=== PATIENT | female | born 1940 | race Caucasian/White ===

== ENCOUNTER 2016-09-01 11:51 | Emergency (ER) | payer OTHER ==
[~2016-09-01] VITALS: Ht 152.4 cm; Wt 53.6 kg
[~2016-09-01 11:51] MED LIST: ACCUPRIL40 MG PO; ALPRAZOLAM0.5 MG PO; AMLODIPINE BESYL5 MG PO; APRESOLINE50 MG PO; ASPIR-LOW81 MG PO; ATARAX,VISTARIL50 MG PO; BENADRYL25 MG PO; BENTYL10 MG PO; CALCIUM 600 +1 EAC3 PO; DALMANE30 MG PO; DEPAKOTE; DEPAKOTE ER (E250 MG PO; DILAUDID4 MG PO; DULCOLAX10 MG PR; DURAGESIC100 MCG TD; DURAGESIC75 MCG PO; DURAGESIC75 MCG TD; ERGOCALCIF50000 UNIT PO; Ecotrin PO; FENTANYL PATCH; FENTANYL1 EAC3 TD; FERROUS SULFAT325 MG PO; FLONASE16 G1 BOTH NARES; GABAPENTIN300 MG PO; HYDROCODON-ACE1 EAC7 PO; HYDROXYZINE PAM50 MG PO; IRON325 MG PO; KENALOG,ARISTOC15 GM TP; KLOR-CON 1010 ME1 PO; KLOR-CON M1010 MEQ PO; LISINOPRIL; LO-DOSE ASPIRIN81 M1 PO; LORAZEPAM; LOSARTAN POTAS100 MG PO; LOSARTAN POTASS50 MG PO; LOSARTAN-HCTZ1 EAC2 PO; METHADONE10 MG PO; MULTI VITAMIN1 EACH PO; MULTIVITAMIN1 EAC2 PO; Methadone PO; NORVASC5 MG PO; OMEPRAZOLE20 M2 PO; OMEPRAZOLE20 MG PO; OXYCODONE; OXYCODONE HCL5 MG PO; OXYCONTIN10 MG PO; PERCOCET 5/31 TABLET PO; POTASSIUM CHLO10 ME3 PO; PREDNISONE10 MG PO; PREDNISONE20 MG PO; PRILOSEC; PRILOSEC40 MG PO; PROMETHAZINE HC25 M1 PO; PriLOSEC PO; QUINAPRIL HCL40 MG PO; QUINAPRIL PO; REQUIP0.5 MG PO; RESTORIL30 MG PO; SENNA LAX8.6 MG PO; SENOKOT S,PE1 TABLET PO; TEMAZEPAM30 MG PO; TRAZODONE HCL50 MG PO; TRIAMCINOLONE A15 GM TP; TYLENOL EXTRA500 MG PO; TYLENOL REGULA325 MG PO; VITAMIN A8000 UNIT PO; VITAMIN B12 100MCG PO; VITAMIN B12-FO1 EACH PO; VITAMIN E100 UNIT PO; Vicodin,Norco 5/325 PO; XANAX; XANAX0.5 MG PO; XANAX1 MG PO; ZOFRAN4 MG PO; ZOFRAN8 MG PO; ZOLPIDEM TARTRAT5 MG PO; [UNRECOGNIZED DRUG - OTHER] PO
[2016-09-01 13:51] LABS: EOSINOPHIL (%) 0.8 % (0-5); EOSINOPHIL COUNT 0.1 K/uL (0-0.3); HEMATOCRIT 31.9 % (36.0-46.0); IMMATURE GRANULOCYTE (%) 0.2 % (0.0-0.7); IMMATURE GRANULOCYTE COUNT 0.2 K/uL; LYMPHOCYTE COUNT 0.8 K/uL (1.0-2.8); MCH 27.4 PG (29.0-34.0); MCHC 33.2 G/DL (30.0-36.0); MCV 82.4 FL (83-99); MEAN PLAT.VOLUME 8.4 uM^3 (9.5-12.4); MONOCYTE (%) 9.1 % (3-12); MONOCYTE COUNT 0.8 K/uL (0-0.8); NEUTROPHIL (%) 80.2 % (45-76); NEUTROPHIL COUNT 7.1 K/uL (1.8-6.4); PLATELET COUNT 245 K/uL (156-360); RBC DIS.WIDTH-CV 13.8 % (11.8-14.6); RBC DIS.WIDTH-SD 40.5 % (39-53); RED BLOOD COUNT 3.87 M/uL (3.80-5.20); WHITE BLOOD COUNT 8.9 K/uL (4.1-10.2)
[2016-09-01 13:59] LABS: CHLORIDE 98 mEq/L (99-109); POTASSIUM 4.4 mEq/L (3.7-5.4); SODIUM 133 mEq/L (136-147)
[2016-09-01 14:00] LABS: GLUCOSE 103 mg/dL (70-99)
[2016-09-01 14:02] LABS: ANION GAP 13 MEQ/L (2-14)
[2016-09-01 14:04] LABS: GFR ESTIMATE (CALCULATED) > 59 mL/min/
[2016-09-01 14:05] LABS: UREA NITROGEN (BUN) 18 mg/dL (9-23)
[2016-09-01] MEDS ORDERED: PERCOCET 5/31 TABLET PO (14:55)
[2016-09-01] MEDS ORDERED: DOXYCYCLINE HY100 M3 PO (14:55)
[2016-09-01 15:30] VITALS: BP 124/94
== END 2016-09-01 15:49 | disposition home or self-care (01) ==
LOC: EME 11:51
PROVIDERS: Emergency Medicine
PROC: 0H9HXZZ Drainage of Right Upper Leg Skin, External Approach (ICD-10-PCS; principal; 2016-09-01)
DX: L02.415 Cutaneous abscess of right lower limb (principal); L03.115 Cellulitis of right lower limb; F17.200 Nicotine dependence, unspecified, uncomplicated; Z71.6 Tobacco abuse counseling; Z85.3 Personal history of malignant neoplasm of breast; I10 Essential (primary) hypertension; G89.29 Other chronic pain
CPT/HCPCS: 80048; 83605; 85025; 87040; 99281; 99285; J1170; J2405

== ENCOUNTER 2016-09-03 11:53 | Emergency (ER) | payer OTHER ==
[~2016-09-03] VITALS: Ht 152.4 cm; Wt 53.5 kg
[~2016-09-03 11:53] MED LIST changes: +DOXYCYCLINE HY100 M3 PO
[2016-09-03] MEDS ORDERED: ATARAX,VISTARIL25 MG PO (13:54)
[2016-09-03 14:17] VITALS: BP 139/81
== END 2016-09-03 14:18 | disposition home or self-care (01) ==
LOC: EME 11:53
DX: Z48.01 Encounter for change or removal of surgical wound dressing (principal)
CPT/HCPCS: 99281; 99284

== ENCOUNTER 2016-09-19 19:08 | Emergency (ER) | payer OTHER ==
[~2016-09-19] VITALS: Ht 162.6 cm; Wt 55.3 kg
[~2016-09-19 19:08] MED LIST changes: +ATARAX,VISTARIL25 MG PO
[2016-09-19 20:22] LABS: POINT-OF-CARE METER ID UU14100415
[2016-09-19 21:45] LABS: BASE EXCESS -1.3 mEq/L (-3 to +3); BICARBONATE 23.7 mEq/L (22-26); CARBOXY HGB 2.6 % (0-5); COMMENTS - BLOOD GASES C+A+; DEVICE ROOM AIR; METHEMOGLOBIN 1.1 % (0-1.5); PCO2 40 mm Hg (35-45); PO2 77 mm Hg (80-100); SITE LB; pH 7.38 (7.35-7.45)
[2016-09-19 22:02] LABS: HEMATOCRIT 29.8 % (36.0-46.0); MCH 26.6 PG (29.0-34.0); MCHC 32.9 G/DL (30.0-36.0); RBC DIS.WIDTH-CV 14.8 % (11.8-14.6); RBC DIS.WIDTH-SD 42.4 % (39-53); RED BLOOD COUNT 3.68 M/uL (3.80-5.20); WHITE BLOOD COUNT 7.9 K/uL (4.1-10.2)
[2016-09-19 22:17] LABS: CHLORIDE 105 mEq/L (99-109); POTASSIUM 4.1 mEq/L (3.7-5.4); SODIUM 135 mEq/L (136-147)
[2016-09-19 22:19] LABS: GLUCOSE 112 mg/dL (70-99)
[2016-09-19 22:20] LABS: ANION GAP 8 MEQ/L (2-14)
[2016-09-19 22:23] LABS: GFR ESTIMATE (CALCULATED) 58 mL/min/
[2016-09-19 22:24] LABS: UREA NITROGEN (BUN) 23 mg/dL (9-23)
[2016-09-19] MEDS ORDERED: NARCAN4 MG NS (22:31)
[2016-09-19 22:33] LABS: MEAN PLAT.VOLUME 9.5 uM^3 (9.5-12.4); PLATELET COUNT 152 K/uL (156-360)
[2016-09-19 22:49] VITALS: BP 126/56
== END 2016-09-19 22:49 | disposition home or self-care (01) ==
LOC: EME → EDBD 19:08 → EME 22:49
PROVIDERS: Emergency Medicine
DX: T40.4X1A Poisoning by other synthetic narcotics, accidental (unintentional), initial encounter (principal); F17.210 Nicotine dependence, cigarettes, uncomplicated
CPT/HCPCS: 36600; 80048; 81003; 82803; 82948; 83605; 85025; 85027; 93005; 99281; 99285; J2310

== ENCOUNTER → 2016-11-09 | Outpatient (CLI) | payer OTHER ==
[~2016-11-09] MED LIST changes: +BACTRIM,SEPT1 TABLET PO; +NARCAN4 MG NS
== END | disposition home or self-care (01) ==
LOC: AMB 14:30
DX: T82.7XXA Infection and inflammatory reaction due to other cardiac and vascular devices, implants and grafts, initial encounter (principal); Y83.1 Surgical operation with implant of artificial internal device as the cause of abnormal reaction of the patient, or of later complication, without mention of misadventure at the time of the procedure; C50.919 Malignant neoplasm of unspecified site of unspecified female breast; Z92.21 Personal history of antineoplastic chemotherapy; W55.03XA Scratched by cat, initial encounter
CPT/HCPCS: 87070; 87106

== ENCOUNTER 2016-11-19 13:44 | Day surgery (SDC) | payer OTHER ==
[~2016-11-19] VITALS: Ht 152.4 cm; Wt 52.2 kg
[~2016-11-19 13:44] MED LIST changes: +LEXAPRO10 MG PO; +LO-DOSE ASPIRIN81 M2 PO
[2016-11-19 14:33] VITALS: BP 90/50
[2016-11-19 19:50] VITALS: BP 108/54
[2016-11-19 20:50] VITALS: BP 90/52
== END 2016-11-19 21:10 | disposition home or self-care (01) ==
LOC: SDC
PROC: 0HPU0NZ Removal of Tissue Expander from Left Breast, Open Approach (ICD-10-PCS; principal; 2016-11-19)
PROC: 0HRV0JZ Replacement of Bilateral Breast with Synthetic Substitute, Open Approach (ICD-10-PCS; 2016-11-19)
PROC: 0HPT0JZ Removal of Synthetic Substitute from Right Breast, Open Approach (ICD-10-PCS; 2016-11-19)
DX: Z42.1 Encounter for breast reconstruction following mastectomy (principal); Z90.13 Acquired absence of bilateral breasts and nipples; N65.0 Deformity of reconstructed breast; Z85.3 Personal history of malignant neoplasm of breast; I10 Essential (primary) hypertension; K21.9 Gastro-esophageal reflux disease without esophagitis; Z85.038 Personal history of other malignant neoplasm of large intestine; Z82.49 Family history of ischemic heart disease and other diseases of the circulatory system; Z79.82 Long term (current) use of aspirin; Z88.0 Allergy status to penicillin; Z88.8 Allergy status to other drugs, medicaments and biological substances
CPT/HCPCS: C1789; J0744; J2250; J3010; J7120

== ENCOUNTER 2017-01-06 10:52 | Emergency (ER) | payer OTHER ==
[~2017-01-06] VITALS: Ht 152.4 cm; Wt 54.5 kg
[2017-01-06] MEDS ORDERED: PERCOCET 5/31 TABLET PO (14:00)
[2017-01-06 14:49] VITALS: BP 148/84
== END 2017-01-06 14:50 | disposition home or self-care (01) ==
LOC: EME 10:52
DX: M25.511 Pain in right shoulder (principal); Z91.81 History of falling; Z72.0 Tobacco use; I10 Essential (primary) hypertension; Z85.3 Personal history of malignant neoplasm of breast; Z90.13 Acquired absence of bilateral breasts and nipples; Z79.82 Long term (current) use of aspirin; Z88.0 Allergy status to penicillin; Z88.6 Allergy status to analgesic agent; Z88.1 Allergy status to other antibiotic agents; Z88.8 Allergy status to other drugs, medicaments and biological substances
CPT/HCPCS: 73030; 99281; 99284; J3010

== ENCOUNTER 2017-02-18 12:58 | Day surgery (SDC) | payer OTHER ==
[~2017-02-18] VITALS: Ht 152.4 cm; Wt 53.5 kg
[2017-02-18 13:54] VITALS: BP 149/65
[2017-02-18 16:15] VITALS: BP 137/63
[2017-02-18 17:28] VITALS: BP 140/68
[2017-02-18 18:15] VITALS: BP 137/63
== END 2017-02-18 18:18 | disposition home or self-care (01) ==
LOC: SDC 12:58
PROC: 0HPU0JZ Removal of Synthetic Substitute from Left Breast, Open Approach (ICD-10-PCS; principal; 2017-02-18)
DX: T85.898A Other specified complication of other internal prosthetic devices, implants and grafts, initial encounter (principal); Z98.82 Breast implant status; Z85.3 Personal history of malignant neoplasm of breast; Z90.13 Acquired absence of bilateral breasts and nipples; I10 Essential (primary) hypertension; D64.9 Anemia, unspecified; K21.9 Gastro-esophageal reflux disease without esophagitis; Z85.038 Personal history of other malignant neoplasm of large intestine; I73.9 Peripheral vascular disease, unspecified; Z86.19 Personal history of other infectious and parasitic diseases; Z82.49 Family history of ischemic heart disease and other diseases of the circulatory system; Z88.0 Allergy status to penicillin; Z88.1 Allergy status to other antibiotic agents; Z88.8 Allergy status to other drugs, medicaments and biological substances; Z87.891 Personal history of nicotine dependence
CPT/HCPCS: 87070; 87075; 87205; J0171; J1100; J2405; J3010; S0020

== ENCOUNTER 2017-04-24 18:00 | Emergency (ER) | payer OTHER ==
[~2017-04-24] VITALS: Ht 152.4 cm; Wt 53.0 kg
[2017-04-24] MEDS ORDERED: LORTAB 5-325 M1 EACH PO (20:46)
[2017-04-24 21:19] VITALS: BP 103/71
== END 2017-04-24 21:39 | disposition home or self-care (01) ==
LOC: EME 18:00
DX: M25.512 Pain in left shoulder (principal); S40.022A Contusion of left upper arm, initial encounter; X58.XXXA Exposure to other specified factors, initial encounter; Z96.612 Presence of left artificial shoulder joint; Z96.611 Presence of right artificial shoulder joint; Z85.3 Personal history of malignant neoplasm of breast; Z90.13 Acquired absence of bilateral breasts and nipples; F17.210 Nicotine dependence, cigarettes, uncomplicated; Z71.6 Tobacco abuse counseling; Z88.0 Allergy status to penicillin; Z88.6 Allergy status to analgesic agent; Z88.1 Allergy status to other antibiotic agents
CPT/HCPCS: 73030; 99281; 99284; J3010

== ENCOUNTER 2017-05-30 14:39 | Observation (INO) | payer OTHER ==
[~2017-05-30] VITALS: Ht 152.4 cm; Wt 54.1 kg
[~2017-05-30 14:39] MED LIST changes: +CALCIUM 500 MG1 EACH PO; -CALCIUM 600 +1 EAC3 PO; +DURAGESIC50 MCG TD; -LEXAPRO10 MG PO; +LEXAPRO20 MG PO; +LORTAB 5-325 M1 EACH PO
[2017-05-30 15:23] LABS: EOSINOPHIL (%) 3.2 % (0-5); EOSINOPHIL COUNT 0.4 K/uL (0-0.3); HEMATOCRIT 35.4 % (36.0-46.0); IMMATURE GRANULOCYTE COUNT 0.1 K/uL; INSTRUMENT ABS NEUTROPHIL CT 8.6 K/uL; LYMPHOCYTE COUNT 1.5 K/uL (1.0-2.8); MCH 27.7 PG (29.0-34.0); MCHC 32.5 G/DL (30.0-36.0); MCV 85.3 FL (83-99); MEAN PLAT.VOLUME 8.7 uM^3 (9.5-12.4); MONOCYTE (%) 4.4 % (3-12); MONOCYTE COUNT 0.5 K/uL (0-0.8); NEUTROPHIL (%) 77.8 % (45-76); NEUTROPHIL COUNT 8.6 K/uL (1.8-6.4); PLATELET COUNT 277 K/uL (156-360); RBC DIS.WIDTH-CV 14.5 % (11.8-14.6); RBC DIS.WIDTH-SD 45.1 % (39-53); RED BLOOD COUNT 4.15 M/uL (3.80-5.20)
[2017-05-30 15:32] LABS: CHLORIDE 99 mEq/L (99-109); POTASSIUM 4.5 mEq/L (3.7-5.4); SODIUM 139 mEq/L (136-147)
[2017-05-30 15:34] LABS: GLUCOSE 118 mg/dL (70-99)
[2017-05-30 15:36] LABS: ANION GAP 11 MEQ/L (2-14); TOTAL BILIRUBIN 0.2 mg/dL (0.0-1.0)
[2017-05-30 15:37] LABS: SERUM ETHYL ALCOHOL < 10 mg/dL
[2017-05-30 15:38] LABS: GFR ESTIMATE (CALCULATED) 57 mL/min/
[2017-05-30 15:39] LABS: ALKALINE PHOSPHATASE 73 IU/L (3-129)
[2017-05-30 15:40] LABS: UREA NITROGEN (BUN) 14 mg/dL (9-23)
[2017-05-30 15:42] LABS: CREATINE KINASE 29 IU/L (1-294); SALICYLATE < 5.0 MG/DL (15-30); TOTAL CK 29 IU/L (1-294)
[2017-05-30 15:44] LABS: TROP-I INTERPRETATION NEGATIVE; TROPONIN-I < 0.01 ng/mL (0.0-0.30)
[2017-05-30 15:48] LABS: CK-MB 0.9 ng/mL (0.0-4.9)
[2017-05-30] MEDS ORDERED: DESYREL100 MG PO (17:27)
[2017-05-30] MEDS ORDERED: ATARAX10 MG PO (17:27)
[2017-05-30] MEDS ORDERED: LYRICA75 MG PO (17:27)
[2017-05-30] MEDS ORDERED: PERCOCET 5/31 TABLET PO (17:27)
[2017-05-30 19:35] VITALS: BP 108/56
[2017-05-30 23:30] LABS: TROP-I INTERPRETATION NEGATIVE; TROPONIN-I < 0.01 ng/mL (0.0-0.30)
[2017-05-31 00:06] VITALS: BP 124/59
[2017-05-31 00:14] LABS: ADD MIUA? YES; BILIRUBIN NEGATIVE; BLOOD NEGATIVE; COLOR YELLOW ((YELLOW)); GLUCOSE (STRIP) NEGATIVE; KETONES NEGATIVE; LEUKOCYTES MODERATE; NITRITE NEGATIVE; PROTEIN (STRIP) NEGATIVE; SPECIFIC GRAVITY 1.015 (1.000-1.030); UROBILINOGEN 0.2 MG/DL (0.2-1.0)
[2017-05-31 00:17] LABS: BACTERIA 2+ /HPF; EPITHELIAL CELLS RARE /HPF; MUCUS TRACE /LPF; RED BLOOD CELLS 0-5 /HPF (0-5); UCUL ADDED? YES; WHITE BLOOD CELLS TNTC /HPF (0-5)
[2017-05-31 04:20] VITALS: BP 110/54
[2017-05-31 05:22] LABS: BASOPHIL COUNT 0.1 K/uL (0-0.1); EOSINOPHIL (%) 7.7 % (0-5); EOSINOPHIL COUNT 0.6 K/uL (0-0.3); HEMATOCRIT 33.6 % (36.0-46.0); IMMATURE GRANULOCYTE (%) 0.7 % (0.0-0.7); IMMATURE GRANULOCYTE COUNT 0.1 K/uL; INSTRUMENT ABS NEUTROPHIL CT 4.6 K/uL; LYMPHOCYTE COUNT 1.9 K/uL (1.0-2.8); MCH 26.7 PG (29.0-34.0); MCHC 31.3 G/DL (30.0-36.0); MCV 85.5 FL (83-99); MEAN PLAT.VOLUME 8.7 uM^3 (9.5-12.4); MONOCYTE (%) 7.5 % (3-12); MONOCYTE COUNT 0.6 K/uL (0-0.8); NEUTROPHIL (%) 59.2 % (45-76); NEUTROPHIL COUNT 4.6 K/uL (1.8-6.4); PLATELET COUNT 250 K/uL (156-360); RBC DIS.WIDTH-CV 14.4 % (11.8-14.6); RED BLOOD COUNT 3.93 M/uL (3.80-5.20); WHITE BLOOD COUNT 7.7 K/uL (4.1-10.2)
[2017-05-31 05:46] LABS: TROP-I INTERPRETATION NEGATIVE; TROPONIN-I < 0.01 ng/mL (0.0-0.30)
[2017-05-31 05:57] LABS: ALKALINE PHOSPHATASE 54 IU/L (3-129); ANION GAP 6 MEQ/L (2-14); CHLORIDE 102 MEQ/L (99-109); GFR ESTIMATE (CALCULATED) > 59 mL/min/; GLUCOSE 92 mg/dL (70-99); POTASSIUM 4.6 MEQ/L (3.7-5.4); SAMPLE HEMOLYSIS CHECK 0; SAMPLE ICTERIC CHECK 0; SAMPLE LIPEMIA CHECK 0; SODIUM 136 MEQ/L (136-147); TOTAL BILIRUBIN 0.3 MG/DL (0.0-1.0); UREA NITROGEN (BUN) 14 mg/dL (9-23)
[2017-05-31 11:29] VITALS: BP 100/63
[2017-05-31 15:18] LABS: TROP-I INTERPRETATION NEGATIVE; TROPONIN-I < 0.01 ng/mL (0.0-0.30)
[2017-05-31 15:19] VITALS: BP 120/70
[2017-05-31 20:00] VITALS: BP 139/64
[2017-06-01 00:13] VITALS: BP 99/64
[2017-06-01 08:24] VITALS: BP 82/53
[2017-06-01 08:29] VITALS: BP 90/52
[2017-06-01] MEDS ORDERED: BACTRIM,SEPT1 TABLET PO (10:34)
[2017-06-01 11:15] VITALS: BP 98/53
== END 2017-06-01 14:26 | disposition home or self-care (01) ==
LOC: EME 14:39 → 5WEST 17:44 → EDOF 17:44 → ENRESERV 18:11 → 5WEST 19:25
PROVIDERS: Emergency Medicine; Family Medicine
DX: R55 Syncope and collapse (principal); N39.0 Urinary tract infection, site not specified; F11.20 Opioid dependence, uncomplicated; R94.31 Abnormal electrocardiogram [ECG] [EKG]; K21.9 Gastro-esophageal reflux disease without esophagitis; I11.0 Hypertensive heart disease with heart failure; I50.9 Heart failure, unspecified; M79.7 Fibromyalgia; J44.9 Chronic obstructive pulmonary disease, unspecified; F32.9 Major depressive disorder, single episode, unspecified; F41.9 Anxiety disorder, unspecified; G89.29 Other chronic pain; Z91.81 History of falling; Z85.3 Personal history of malignant neoplasm of breast; Z90.13 Acquired absence of bilateral breasts and nipples; Z87.19 Personal history of other diseases of the digestive system; Z90.49 Acquired absence of other specified parts of digestive tract; Z96.611 Presence of right artificial shoulder joint; Z96.612 Presence of left artificial shoulder joint; F17.200 Nicotine dependence, unspecified, uncomplicated; Z79.82 Long term (current) use of aspirin; Z88.0 Allergy status to penicillin
CPT/HCPCS: 70450; 71020; 80053; 81003; 82550; 82553; 84443; 84484; 85025; 87077; 87086; 87186; 93005; 93880; 99281; 99285; G0378; G0480; J7030

== ENCOUNTER 2017-09-21 04:41 | Emergency (ER) | payer OTHER ==
[~2017-09-21] VITALS: Ht 152.4 cm; Wt 52.6 kg
[~2017-09-21 04:41] MED LIST changes: +ATARAX10 MG PO; +DESYREL100 MG PO; +LYRICA75 MG PO
[2017-09-21 05:37] LABS: CHLORIDE 99 mEq/L (99-109); POTASSIUM 4.5 mEq/L (3.7-5.4); SODIUM 133 mEq/L (136-147)
[2017-09-21 05:39] LABS: GLUCOSE 107 mg/dL (70-99)
[2017-09-21 05:42] LABS: SERUM ETHYL ALCOHOL < 10 mg/dL
[2017-09-21 05:43] LABS: CREATININE 0.9 mg/dL (0.6-1.3); GFR ESTIMATE (CALCULATED) > 59 mL/min/
[2017-09-21 05:44] LABS: UREA NITROGEN (BUN) 17 mg/dL (9-23)
[2017-09-21 05:47] LABS: TROP-I INTERPRETATION NEGATIVE; TROPONIN-I < 0.01 ng/mL (0.0-0.30)
[2017-09-21 05:56] LABS: BASOPHIL (%) 0.5 % (0-1); EOSINOPHIL (%) 2.8 % (0-5); EOSINOPHIL COUNT 0.2 K/uL (0-0.3); HEMATOCRIT 33.9 % (36.0-46.0); IMMATURE GRANULOCYTE (%) 0.4 % (0.0-0.7); LYMPHOCYTE (%) 28.5 % (15-42); LYMPHOCYTE COUNT 2.2 K/uL (1.0-2.8); MCH 27.8 PG (29.0-34.0); MCHC 32.4 G/DL (30.0-36.0); MCV 85.6 FL (83-99); MONOCYTE (%) 7.7 % (3-12); MONOCYTE COUNT 0.6 K/uL (0-0.8); NEUTROPHIL (%) 60.1 % (45-76); NEUTROPHIL COUNT 4.6 K/uL (1.8-6.4); PLATELET COUNT 245 K/uL (156-360); RBC DIS.WIDTH-CV 15.3 % (11.8-14.6); RBC DIS.WIDTH-SD 47.6 % (39-53); RED BLOOD COUNT 3.96 M/uL (3.80-5.20); WHITE BLOOD COUNT 7.6 K/uL (4.1-10.2)
[2017-09-21] MEDS ORDERED: NORCO 5/3251 TABLET PO (07:10)
[2017-09-21 07:35] VITALS: BP 163/95
== END 2017-09-21 07:37 | disposition home or self-care (01) ==
LOC: EME → EDBD 04:41 → EME 04:41
PROVIDERS: Emergency Medicine
DX: S22.20XA Unspecified fracture of sternum, initial encounter for closed fracture (principal); S00.83XA Contusion of other part of head, initial encounter; W18.30XA Fall on same level, unspecified, initial encounter; Z85.3 Personal history of malignant neoplasm of breast; I11.0 Hypertensive heart disease with heart failure; I50.9 Heart failure, unspecified; F17.200 Nicotine dependence, unspecified, uncomplicated; Z90.10 Acquired absence of unspecified breast and nipple; Z79.82 Long term (current) use of aspirin; M79.7 Fibromyalgia; F32.9 Major depressive disorder, single episode, unspecified; F41.9 Anxiety disorder, unspecified; Z88.0 Allergy status to penicillin; Z88.8 Allergy status to other drugs, medicaments and biological substances; Z90.49 Acquired absence of other specified parts of digestive tract
CPT/HCPCS: 70450; 71275; 80047; 80048; 83605; 84484; 85025; 93005; 99281; 99285; G0480; J3010; J7030

== ENCOUNTER 2018-01-06 18:19 | Emergency (ER) | payer OTHER ==
[~2018-01-06] VITALS: Ht 152.4 cm; Wt 53.4 kg
[~2018-01-06 18:19] MED LIST changes: +NORCO 5/3251 TABLET PO
[2018-01-06 19:29] LABS: BASOPHIL (%) 0.3 % (0-1); BASOPHIL COUNT 0.1 K/uL (0-0.1); EOSINOPHIL (%) 3.6 % (0-5); EOSINOPHIL COUNT 0.5 K/uL (0-0.3); HEMATOCRIT 35.5 % (36.0-46.0); HEMOGLOBIN 11.2 G/DL (11.9-15.5); IMMATURE GRANULOCYTE (%) 0.6 % (0.0-0.7); LYMPHOCYTE (%) 7.5 % (15-42); LYMPHOCYTE COUNT 1.1 K/uL (1.0-2.8); MCH 27.3 PG (29.0-34.0); MCHC 31.5 G/DL (30.0-36.0); MCV 86.4 FL (83-99); MONOCYTE COUNT 0.6 K/uL (0-0.8); NEUTROPHIL COUNT 12.2 K/uL (1.8-6.4); PLATELET COUNT 314 K/uL (156-360); RBC DIS.WIDTH-CV 15.6 % (11.8-14.6); RED BLOOD COUNT 4.11 M/uL (3.80-5.20); WHITE BLOOD COUNT 14.5 K/uL (4.1-10.2)
[2018-01-06 19:43] LABS: ALBUMIN 3.9 g/dL (3.2-4.8); CHLORIDE 97 mEq/L (99-109); POTASSIUM 4.7 mEq/L (3.7-5.4); SODIUM 133 mEq/L (136-147)
[2018-01-06 19:44] LABS: MAGNESIUM 1.9 mg/dL (1.3-2.7)
[2018-01-06 19:45] LABS: GLUCOSE 140 mg/dL (70-99)
[2018-01-06 19:46] LABS: TOTAL PROTEIN 7.4 g/dL (6.4-8.3)
[2018-01-06 19:47] LABS: TOTAL BILIRUBIN 0.2 mg/dL (0.0-1.0)
[2018-01-06 19:49] LABS: ALKALINE PHOSPHATASE 76 IU/L (3-129); GFR ESTIMATE (CALCULATED) 57 mL/min/
[2018-01-06 19:50] LABS: UREA NITROGEN (BUN) 18 mg/dL (9-23)
[2018-01-06 19:51] LABS: AST (GOT) 16 IU/L (2-34)
[2018-01-06 19:52] LABS: ALT (GPT) 9 IU/L (3-49)
[2018-01-06 19:55] LABS: TROP-I INTERPRETATION NEGATIVE; TROPONIN-I 0.02 ng/mL (0.0-0.30)
[2018-01-06] MEDS ORDERED: NARCAN4 MG NS (22:25)
[2018-01-06 23:39] VITALS: BP 120/78
== END 2018-01-07 00:17 | disposition home or self-care (01) ==
LOC: EME 18:19
PROVIDERS: Emergency Medicine
DX: T40.1X1A Poisoning by heroin, accidental (unintentional), initial encounter (principal); M79.7 Fibromyalgia; F41.9 Anxiety disorder, unspecified; F32.9 Major depressive disorder, single episode, unspecified; F17.200 Nicotine dependence, unspecified, uncomplicated; Z85.3 Personal history of malignant neoplasm of breast; Z90.13 Acquired absence of bilateral breasts and nipples; Z90.49 Acquired absence of other specified parts of digestive tract; Z88.1 Allergy status to other antibiotic agents; Z88.0 Allergy status to penicillin; Z88.8 Allergy status to other drugs, medicaments and biological substances
CPT/HCPCS: 71045; 80053; 83735; 84484; 85025; 93005; 99281; 99284

== ENCOUNTER 2018-01-14 01:30 | Emergency (ER) | payer OTHER ==
[~2018-01-14] VITALS: Ht 152.4 cm; Wt 50.2 kg
[2018-01-14] MEDS ORDERED: BACTRIM,SEPT1 TABLET PO (02:59)
[2018-01-14] MEDS ORDERED: CLEOCIN300 MG PO (03:01)
[2018-01-14 03:28] VITALS: BP 139/118
== END 2018-01-14 03:28 | disposition home or self-care (01) ==
LOC: EME 01:30
DX: L02.214 Cutaneous abscess of groin (principal); L03.314 Cellulitis of groin; Z88.0 Allergy status to penicillin; Z88.1 Allergy status to other antibiotic agents; I10 Essential (primary) hypertension; Z85.038 Personal history of other malignant neoplasm of large intestine; Z85.3 Personal history of malignant neoplasm of breast; Z90.49 Acquired absence of other specified parts of digestive tract; Z90.13 Acquired absence of bilateral breasts and nipples; Z79.82 Long term (current) use of aspirin; F17.200 Nicotine dependence, unspecified, uncomplicated
CPT/HCPCS: 80048; 85025; 99281; 99283

== ENCOUNTER 2018-03-24 16:33 | Inpatient (IN) | payer OTHER ==
[~2018-03-24] VITALS: Ht 152.4 cm; Wt 50.0 kg
[~2018-03-24 16:33] MED LIST changes: +CLEOCIN300 MG PO
[2018-03-24 17:11] LABS: BASOPHIL (%) 0.5 % (0-1); BASOPHIL COUNT 0.1 K/uL (0-0.1); EOSINOPHIL (%) 0.9 % (0-5); EOSINOPHIL COUNT 0.1 K/uL (0-0.3); HEMATOCRIT 37.8 % (36.0-46.0); HEMOGLOBIN 12.2 G/DL (11.9-15.5); IMMATURE GRANULOCYTE (%) 0.4 % (0.0-0.7); LYMPHOCYTE (%) 7.8 % (15-42); LYMPHOCYTE COUNT 1.1 K/uL (1.0-2.8); MCHC 32.3 G/DL (30.0-36.0); MCV 83.6 FL (83-99); MONOCYTE (%) 4.3 % (3-12); MONOCYTE COUNT 0.6 K/uL (0-0.8); NEUTROPHIL (%) 86.1 % (45-76); NEUTROPHIL COUNT 12.1 K/uL (1.8-6.4); PLATELET COUNT 346 K/uL (156-360); RBC DIS.WIDTH-CV 14.9 % (11.8-14.6); RBC DIS.WIDTH-SD 45.4 % (39-53); RED BLOOD COUNT 4.52 M/uL (3.80-5.20)
[2018-03-24 17:23] LABS: ALBUMIN 4.2 g/dL (3.2-4.8); CHLORIDE 100 mEq/L (99-109); POTASSIUM 4.6 mEq/L (3.7-5.4); SODIUM 136 mEq/L (136-147)
[2018-03-24 17:24] LABS: AMYLASE 60 IU/L (1-118)
[2018-03-24 17:25] LABS: GLUCOSE 105 mg/dL (70-99)
[2018-03-24 17:26] LABS: TOTAL PROTEIN 8.2 g/dL (6.4-8.3)
[2018-03-24 17:27] LABS: TOTAL BILIRUBIN 0.3 mg/dL (0.0-1.0)
[2018-03-24 17:29] LABS: ALKALINE PHOSPHATASE 96 IU/L (3-129); CREATININE 0.9 mg/dL (0.6-1.3); GFR ESTIMATE (CALCULATED) > 59 mL/min/
[2018-03-24 17:30] LABS: SERUM ETHYL ALCOHOL < 10 mg/dL; UREA NITROGEN (BUN) 18 mg/dL (9-23)
[2018-03-24 17:31] LABS: AST (GOT) 20 IU/L (2-34)
[2018-03-24 17:32] LABS: ALT (GPT) 9 IU/L (3-49)
[2018-03-24 17:33] LABS: LIPASE 11 U/L (1.0-51.0)
[2018-03-24 17:34] LABS: TROP-I INTERPRETATION NEGATIVE; TROPONIN-I 0.07 ng/mL (0.0-0.30)
[2018-03-24 19:20] LABS: APPEARANCE CLEAR ((CLEAR)); BILIRUBIN NEGATIVE; BLOOD NEGATIVE; COLOR STRAW ((YELLOW)); GLUCOSE (STRIP) NEGATIVE; KETONES NEGATIVE; LEUKOCYTES NEGATIVE; NITRITE NEGATIVE; PROTEIN (STRIP) NEGATIVE; SPECIFIC GRAVITY 1.015 (1.000-1.030); UCUL ADDED? NO; UROBILINOGEN 0.2 MG/DL (0.2-1.0)
[2018-03-24 19:36] LABS: AMPHETAMINE PRESUMPTIVE POSITIVE (500 ng/mL); BARBITURATES NEGATIVE (200 ng/mL); BENZODIAZEPINES NEGATIVE (150 ng/mL); BUPRENORPHINE NEGATIVE (10 ng/mL); COCAINE NEGATIVE (150 ng/mL); METHADONE NEGATIVE (200 ng/mL); METHAMPHETAMINE NEGATIVE (500 ng/mL); OPIATES (MORPHINE) PRESUMPTIVE POSITIVE (100 ng/mL); OXYCODONE NEGATIVE (100 ng/mL); PHENCYCLIDINE NEGATIVE (25 ng/mL); PROPOXYPHENE NEGATIVE (300 ng/mL); THC CANNABINOIDS NEGATIVE (50 ng/mL); TRICYCLIC ANTIDEPRESSANTS NEGATIVE (300 ng/mL)
[2018-03-24 23:00] VITALS: BP 172/88
[2018-03-25 00:09] VITALS: BP 93/55
[2018-03-25 01:06] LABS: TROP-I INTERPRETATION NEGATIVE; TROPONIN-I 0.08 ng/mL (0.0-0.30)
[2018-03-25 03:45] VITALS: BP 134/73
[2018-03-25 04:31] LABS: HDL CHOLESTEROL 31 MG/DL (Desirable>=50); LDL CHOLESTEROL 64 mg/dL (Desirable<100); NON-HDL CHOLESTEROL 89 mg/dL (Desirable<160); TOTAL CHOLESTEROL 120 mg/dL (Desirable<200); TRIGLYCERIDES 127 MG/DL (Normal: <150)
[2018-03-25 06:15] LABS: HEMATOCRIT 36.9 % (36.0-46.0); HEMOGLOBIN 11.9 G/DL (11.9-15.5); MCH 26.7 PG (29.0-34.0); MCHC 32.2 G/DL (30.0-36.0); MCV 82.7 FL (83-99); PLATELET COUNT 320 K/uL (156-360); RBC DIS.WIDTH-CV 14.9 % (11.8-14.6); RED BLOOD COUNT 4.46 M/uL (3.80-5.20); WHITE BLOOD COUNT 8.6 K/uL (4.1-10.2)
[2018-03-25 06:39] LABS: TROP-I INTERPRETATION NEGATIVE; TROPONIN-I 0.08 ng/mL (0.0-0.30)
[2018-03-25 08:13] VITALS: BP 134/73
[2018-03-25 10:14] LABS: HEMOGLOBIN A1c (GLYCOHEMOGLOB) 5.8 % (Below 5.7)
[2018-03-25 11:53] VITALS: BP 136/72
[2018-03-25] MEDS ORDERED: COZAAR100 MG PO (15:10)
[2018-03-25] MEDS ORDERED: PRILOSEC20 MG PO (15:10)
[2018-03-25] MEDS ORDERED: ERGOCALCIF50000 UNIT PO (15:11)
[2018-03-25 20:35] VITALS: BP 119/58
[2018-03-26 00:07] VITALS: BP 123/65
[2018-03-26 03:57] VITALS: BP 161/80
[2018-03-26 07:33] VITALS: BP 152/76
[2018-03-26 11:56] VITALS: BP 142/67
== END 2018-03-26 14:55 | disposition home or self-care (01) | DRG 917 ==
LOC: EME 16:33 → EDOF 21:07 → 5SOUTH 21:07 → ENRESERV 21:08 → CANRESERV 21:08 → ENRESERV 21:19 → 5SOUTH 22:49
PROVIDERS: Emergency Medicine; Hospitalist
PROC: 0HQ0XZZ Repair Scalp Skin, External Approach (ICD-10-PCS; principal; 2018-03-24)
DX: T40.601A Poisoning by unspecified narcotics, accidental (unintentional), initial encounter (principal); G92 Toxic encephalopathy; S01.91XA Laceration without foreign body of unspecified part of head, initial encounter; M79.7 Fibromyalgia; I50.9 Heart failure, unspecified; F41.9 Anxiety disorder, unspecified; F32.9 Major depressive disorder, single episode, unspecified; D64.9 Anemia, unspecified; F17.200 Nicotine dependence, unspecified, uncomplicated; T50.905A Adverse effect of unspecified drugs, medicaments and biological substances, initial encounter; K21.9 Gastro-esophageal reflux disease without esophagitis; F19.90 Other psychoactive substance use, unspecified, uncomplicated; F40.240 Claustrophobia; I73.9 Peripheral vascular disease, unspecified; Z90.49 Acquired absence of other specified parts of digestive tract; W19.XXXA Unspecified fall, initial encounter; Z85.3 Personal history of malignant neoplasm of breast; Z90.13 Acquired absence of bilateral breasts and nipples
CPT/HCPCS: 70450; 70496; 70498; 70551; 71045; 80047; 80048; 80053; 80061; 81003; 82150; 82948; 83036; 83690; 84484; 84999; 85025; 85027; 85610; 85730; 86850; 86900; 86901; 93005; 95819; 99281; 99285; G0480; J1644; J2060; J2270; J2310; J7030